=== PATIENT | male | born 1965 | race Caucasian/White ===

== ENCOUNTER → 2017-06-21 | Outpatient (CLI) | payer OTHER ==
[~2017-06-21] MED LIST: CIPR500; FISH1000; FOLGARD TABLET1 EACH; Hydrocodone-Ap1 EA23 PO; MSM500 MG; TAB A VITE1 EAC1; TAMS.4ER
== END ==
LOC: LAB SHORT 08:30
DX: E55.9 Vitamin D deficiency, unspecified (principal); M62.89 Other specified disorders of muscle; R53.83 Other fatigue
CPT/HCPCS: 82306; 82310

== ENCOUNTER → 2018-08-27 | Outpatient (CLI) | payer OTHER ==
[2018-08-27 06:55] LABS: Calcium, Urine 15.5 mg/dL (< 17.5); Calcium, Urine Calculation 356.5 mg/24hrs (42.0-353.0)
== END | disposition home or self-care (01) ==
LOC: LAB SHORT 05:30 → LAB 05:30 → LAB FUT 08-21 16:10
PROVIDERS: Internal Medicine Endocrinology, Diabetes & Metabolism
DX: E83.59 Other disorders of calcium metabolism (principal)
CPT/HCPCS: 81050; 82340; 82570

== ENCOUNTER → 2021-10-26 | Outpatient (CLI) | payer OTHER | END | disposition home or self-care (01) | LOC: PLD 12:18 → LAB SHORT 12:18 | DX: D22.5 Melanocytic nevi of trunk (principal) | CPT/HCPCS: 88305 ==

== ENCOUNTER → 2021-12-04 | Outpatient (CLI) | payer OTHER ==
[2021-12-04 14:42] LABS: Calcium, Urine 13.5 mg/dL (< 17.5); Calcium, Urine Calculation 310.5 mg/24hrs (42.0-353.0)
== END | disposition home or self-care (01) ==
LOC: LAB SHORT 10:49
PROVIDERS: Internal Medicine Endocrinology, Diabetes & Metabolism
DX: N20.9 Urinary calculus, unspecified (principal)
CPT/HCPCS: 81050; 82340; 82507; 82570